=== PATIENT | male | born 1965 | race Caucasian/White ===

== ENCOUNTER 2017-10-18 07:57 | Observation (INO) | payer OTHER ==
[~2017-10-18] VITALS: Ht 175.3 cm; Wt 91.0 kg
[~2017-10-18 07:57] MED LIST: FAMO20TA2 PO; LIDOCAINE 0.5%/EPINEPHrine 1:200,000 SOLN 50 ML VIAL ONE; MEDR4PAK PO; OXYMETAZOLINE HCL 0.05% 15 ML NASAL SPRAY ONE; TRIA.1%T TOPICAL
[2017-10-18] MEDS ORDERED: LACTATED RINGER'S 1000 ML INJ 1,000 ML ONE (10:25)
[2017-10-18] MEDS ORDERED: SODIUM CHLORIDE 0.9% INJ 100 ML ONE (10:26)
[2017-10-18] MEDS ORDERED: AMPICILLIN-SULBACTAM INJ 3 GM VIAL ONE (10:26)
[2017-10-18] MEDS ORDERED: MIDAZOLAM HCL 2 MG/2 ML VIAL ONE (11:00)
[2017-10-18] MEDS ORDERED: FAMOTIDINE 20 MG/2 ML VIAL ONE (11:00)
[2017-10-18] MEDS ORDERED: OXYMETAZOLINE HCL 0.05% 15 ML NASAL SPRAY ONE (12:25)
[2017-10-18 12:38] VITALS: PULSE 72
[2017-10-18] MEDS ORDERED: MORPHINE SULFATE 2 MG/ML INJ ONE ×3 (12:55→13:33)
[2017-10-18] MEDS ORDERED: MEPERIDINE HCL 25 MG/ML VIAL ONE (12:58)
[2017-10-18] MEDS ORDERED: ONDANSETRON HCL 4 MG/2 ML VIAL ONE (13:33)
[2017-10-18] MEDS ORDERED: HYDROmorphone HCL PF 0.5 MG/0.5 ML SYRINGE ONE (13:45)
[2017-10-18] MEDS ORDERED: INSULIN HUMAN REGULAR 1,000 UNITS/10 ML VIAL SQ PRN (14:00)
[2017-10-18] MEDS ORDERED: POVIDONE IODINE 5% (ANTISEPSIS KIT) 4 APPLICATIONS EACH NARE PRN (14:00)
[2017-10-18] MEDS ORDERED: METOPROLOL TARTRATE 25 MG TAB PO PRN (14:00)
[2017-10-18] MEDS ORDERED: SODIUM CHLORID 0.9% 500 ML IV PRN (14:00)
[2017-10-18] MEDS ORDERED: AMPICILLIN/SULBAC 3 GM/NS 100 ML IV SCH ×2 (14:00)
[2017-10-18] MEDS ORDERED: LACTATED RINGER'S 1000 ML IV PRN (14:00)
[2017-10-18] MEDS ORDERED: ONDANSETRON HCL 4 MG/2 ML VIAL IV PUSH PRN (14:00)
[2017-10-18] MEDS ORDERED: CHLORHEXIDINE GLUCONATE 2 % 1 PACK (2 CLOTHS) TOPICAL PRN (14:00)
[2017-10-18 14:40] VITALS: O2SAT 94
[2017-10-18 14:45] VITALS: BP 148/94; PULSE 50; RESP 18; TEMP 96.8; O2SAT 94
[2017-10-18] MEDS: LACTATED RINGER'S 1000 ML INJ 1,000 ML IV SCH (14:50)
[2017-10-18] MEDS: ACETAMINOPHEN/HYDROcodone 325 MG/5 MG TAB PO PRN ×3 (15:11→23:12)
[2017-10-18 16:00] VITALS: BP 144/93; PULSE 65; RESP 18; TEMP 96.7; O2SAT 94
[2017-10-18] MEDS: AMPICILLIN/SULBAC 3 GM/NS 100 ML IV SCH ×2 (17:09)
[2017-10-18 20:00] VITALS: BP 135/77; PULSE 71; RESP 20; TEMP 97; O2SAT 97; O2SAT 98
[2017-10-19] VITALS: BP 135/77; PULSE 62; RESP 20; TEMP 98.5; O2SAT 98
[2017-10-19] MEDS: AMPICILLIN/SULBAC 3 GM/NS 100 ML IV SCH ×2 (01:54)
[2017-10-19] MEDS: ACETAMINOPHEN/HYDROcodone 325 MG/5 MG TAB PO PRN ×2 (03:51→08:10)
[2017-10-19] MEDS: LACTATED RINGER'S 1000 ML INJ 1,000 ML IV SCH (03:51)
[2017-10-19 04:00] VITALS: BP 111/71; PULSE 57; RESP 20; TEMP 97.2; O2SAT 97
[2017-10-19 06:45] LABS: AUTOMATED NEUTROPHIL # 11.9 TH/MM3 (1.8-7.7); BASOPHIL % 0.1 % (0.0-2.0); HEMATOCRIT 36.4 % (39.0-51.0); HEMOGLOBIN 12.3 GM/DL (13.0-17.0); LYMPH % 6.8 % (9.0-44.0); LYMPHOCYTE # 0.9 TH/MM3 (1.0-4.8); MEAN CELL VOLUME 92.5 FL (80.0-100.0); MEAN CORPUSCULAR HEMOGLOBIN 31.2 PG (27.0-34.0); MEAN CORPUSCULAR HGB CONC 33.8 % (32.0-36.0); MEAN PLATELET VOLUME 7.6 FL (7.0-11.0); MONO % 5.1 % (0.0-8.0); MONOCYTE # 0.7 TH/MM3 (0-0.9); PLATELET COUNT 257 TH/MM3 (150-450); RED BLOOD COUNT 3.93 MIL/MM3 (4.50-5.90); RED CELL DISTRIBUTION WIDTH 12.3 % (11.6-17.2); WHITE BLOOD COUNT 13.5 TH/MM3 (4.0-11.0)
[2017-10-19 07:21] LABS: CALCIUM 8.5 MG/DL (8.5-10.1)
[2017-10-19 07:22] LABS: BICARBONATE 26.6 MEQ/L (21.0-32.0)
[2017-10-19 07:25] LABS: CREATININE 0.72 MG/DL (0.60-1.30)
[2017-10-19 07:33] LABS: PROTHROMBIN TIME - PATIENT 10.1 SEC (9.8-11.6)
[2017-10-19 08:00] VITALS: BP 153/79; PULSE 62; RESP 18; TEMP 96.9; O2SAT 98
[2017-10-19] MEDS ORDERED: SUCCINYLCHOLINE CHLORIDE 100 MG/5 ML SYRINGE IV PUSH ONE (12:00)
[2017-10-19] MEDS ORDERED: DEXAMETHASONE SOD PHOS 4 MG/ML VIAL IV ONE (12:00)
[2017-10-19] MEDS ORDERED: PROPOFOL 200 MG/20 ML AMP IV ONE (12:00)
[2017-10-19] MEDS ORDERED: ONDANSETRON HCL 4 MG/2 ML VIAL IV PUSH ONE (12:00)
[2017-10-19] MEDS ORDERED: ROCURONIUM INJ 50 MG/5 ML SYRINGE IV PUSH ONE (12:00)
[2017-10-19] MEDS ORDERED: LIDOCAINE HCL 1% PF 5 ML SYRINGE OTHER ONE (12:00)
[2017-10-19] MEDS ORDERED: GLYCOPYRROLATE 1 MG/5 ML VIAL IV PUSH ONE (12:00)
--- NOTE | 2017-11-04 11:36 | MP ---
cc: NAVDEEP VALENCIA MD DATE OF SURGERY 10/18/[address] Navdeep Valencia PREOPERATIVE DIAGNOSIS 1. Chronic pansinusitis. 2. Nasal airway obstruction. 3. Nasal septal deviation. 4. Hypertrophy of inferior turbinates. POSTOPERATIVE DIAGNOSIS 1. Chronic pansinusitis. 2. Nasal airway obstruction. 3. Nasal septal deviation. 4. Hypertrophy of inferior turbinates. OPERATION PERFORMED 1. Open repair nasal septal fracture. 2. Bilateral submucosal resection of inferior turbinates. 3. Bilateral endoscopic total ethmoidectomy. 4. Bilateral endoscopic maxillary antrostomy with removal of maxillary sinus tissue. 5. Bilateral endoscopic exploration of frontal sinus ducts with balloon dilation. 6. Bilateral endoscopic sphenoidotomy with removal of sphenoid sinus tissue. INDICATIONS The indications are documented in the history and physical. DESCRIPTION OF OPERATION The patient was taken to OR #2 and placed in the supine position. Following induction of general anesthesia and intubation the nose was packed bilaterally with cotton pledgets saturated in 0.05% oxymetazoline. The septal mucosa and inferior turbinates were injected with a total of 12 mL of 1% Xylocaine with epinephrine 1:100,000. He was then prepped and draped for surgery. The packing was removed and a hemitransfixion incision was made in the left nasal vestibule. Through this incision the septal mucosa was elevated bilaterally as far as the junction of the bony and cartilaginous septum. This exposed the quadrangular cartilage which showed evidence of old fracture with numerous comminuted fragments extending into the airway bilaterally. A cumulative area of 2 x 2.5 cm was removed preserving 1.5 cm dorsal and caudal cartilaginous struts. The mucosa was elevated from the bony septum and the maxillary crest and these were removed using the Desirae forceps and a 6 mm [place] chisel. The incision was then closed with a running suture of 4-0 chromic and the mucosal layers of septum were approximated to each other with a quilting stitch of 4-0 plain gut. The inferior turbinates were addressed next. They were fractured out medially and stab incisions were made along their inferior surfaces. Through these incisions the submucosal soft tissue was reduced using a curet and preserving the conchal bone. The incisions were cauterized using the suction Bovie at 35 ar[place]o and the remnants of the inferior turbinates were then re-lateralized to the lateral nasal wall. At this point forward the remainder of the operation was done using endoscopic visualization with a 0-degree fiberoptic scope. Additional injections of lidocaine and epinephrine were made into the attachments of the middle turbinates as well as into the uncinate processes and the anterior and posterior ethmoid cells. The left side was addressed first beginning with amputation of the middle turbinate using through-cutting Blakesley forceps and the power microdebrider. This was followed by removal of the uncinate process and then exenteration of the anterior and posterior cells using blunt and power dissection. This was carried back as far as the rostrum of the sphenoid. The sphenoid was then bluntly penetrated through the posterior ethmoids as well as through the natural ostium which was enlarged with a #10 suction and the power microdebrider. The sphenoid cavity was then debrided of inflamed polypoid tissue and mucopurulent material. The maxillary ostium was then enlarged using Stammberger forceps and the power debrider and this cavity was debrided of mucopurulent material and inflamed tissue using Blakesley forceps and also irrigation. This side was then irrigated with chilled saline and packed with cotton pledgets saturated in oxymetazoline. These remained in place while the right side was operated in the same fashion beginning with the amputation of the middle turbinate followed by exenteration of anterior and posterior ethmoid cells, enlargement of the sphenoid ostium and debridement of the sphenoid cavity and then maxillary ostium enlargement and debridement of the maxillary sinus cavity. This side was also irrigated and packed with cotton pledgets saturated in oxymetazoline and these remained in place while the frontal ducts were dilated using the Acclarent technique. The left side was addressed first. The guidewire was advanced into the frontal sinus and the balloon advanced over the wire. It was inflated to a pressure of 12 atmospheres at three different levels, superiorly at the midpoint and inferiorly at the junction with the ethmoid cells. The balloon was removed and the duct was verified patent into the frontal sinus cavity bilaterally. Next, all packing was removed and the cavities were once again irrigated and suctioned. The sinus cavities were filled with Stammberger sinus foam. The nasal vault was packed inferiorly with 7.5 cm Rapid Rhino packs each filled with 7.5 mL of air. The procedure was terminated. The patient was reversed from anesthesia and taken to Recovery in good condition. There were no complications. Blood loss was 600 mL. MD RADHA Sanchez/GEE /7:58 AM /11:14 AM
== END 2017-10-19 09:46 | disposition home or self-care (01) ==
LOC: PHSDC 07:57 → PH3A 14:32
PROVIDERS: ADMIT Otolaryngology; ATTEND Otolaryngology
DX: J34.89 Other specified disorders of nose and nasal sinuses (principal); J34.3 Hypertrophy of nasal turbinates; J32.4 Chronic pansinusitis; J34.2 Deviated nasal septum; Z87.81 Personal history of (healed) traumatic fracture; Z01.818 Encounter for other preprocedural examination
CPT/HCPCS: 00160; 30140; 30520; 31267; 31288; 31296; 80048; 85025; 85610; 85730; 88305; 88311; 94762; 96361; 96365; G0378; J0295; J0330; J1100; J1170; J2175; J2250; J2270; J2405; J3010; J7120